=== PATIENT | male | born 2000 | race Two or more races ===

== ENCOUNTER 2018-01-10 19:04 | Emergency (ER) | payer MEDICAID ==
[~2018-01-10] VITALS: Ht 167.6 cm; Wt 59.0 kg
--- NOTE | 2018-01-10 19:10 | Emergency Room Report ---
History of Present Illness General Chief Complaint: General Complaint Source: Patient Present Illness HPI 17-year-old male presents with acute dystonic reaction soon after taking 30mg Reglan for a headache. This was the first time he ever took Reglan, and the bottle states one tab 3 times a day and so he mistakenly took 3 tabs at once. He was prescribed it for her headaches he had after being diagnosed with a concussion. His face and arms became spastic contorted and he cannot relax him. EMS was called and gave him 25 IV Benadryl without any relief. Patient is able to speak but reports he cannot stop the contortion of his face or arms. Allergies: Coded Allergies: No Known Allergies (Unverified , 01/10/18) Patient History Past Medical History: see triage record Reviewed Nursing Documentation: PMH: Agreed, PSxH: Agreed Nursing Documentation-PMH Hx Asthma: Yes Review of Systems All Other Systems: negative except mentioned in HPI Physical Exam Vital Signs Date Time Temp Pulse Resp B/P (MAP) Pulse Ox O2 Delivery O2 Flow Rate FiO2 01/10/18 19:01 98.0 105 18 130/90 99 Room Air 98.1 Sp02 EP Interpretation: reviewed, normal General Appearance: no apparent distress, alert, non-toxic Head: normocephalic Eyes: bilateral eye normal inspection, bilateral eye PERRL, bilateral eye EOMI ENT: normal ENT inspection, hearing grossly normal, normal pharynx, no angioedema, normal voice, moist mucus membranes Neck: normal inspection, full range of motion, supple, supple/symm/no masses Respiratory: chest non-tender, lungs clear, normal breath sounds, chest symmetrical, palpation of chest normal Cardiovascular #1: normal peripheral pulses, regular rate, rhythm Cardiovascular #2: 2+ radial (R), 2+ radial (L) Gastrointestinal: normal inspection, non tender, soft, no mass, no guarding, no rebound Rectal: deferred Genitourinary: normal inspection, no CVA tenderness Musculoskeletal: back normal, gait/station normal, normal range of motion, non- tender, no calf tenderness Neurologic: alert, responsive, roll on worker III-XII nml as tested, motor strength/tone normal - Hypertonicity in bilateral upper extremities with contortion of his facial muscles to the right and neck to the right as well as both hands contorted and stiff, sensory intact, speech normal Psychiatric: judgement/insight normal, memory normal, mood/affect normal, no suicidal/homicidal ideation Skin: normal color, no rash, warm/dry, normal turgor Lymphatic: no adenopathy Medical Decision Making Reaction to Intervention: Improved Diagnostic Impression: Primary Impression: Acute dystonic reaction due to drugs Rhythm Strip Diag. Results Rhythm Strip Time: 21:22 EP Interpretation: yes Rate: 88 Rhythm: NSR, no PVC's, no ectopy Last Vital Signs Date Time Temp Pulse Resp B/P (MAP) Pulse Ox O2 Delivery O2 Flow Rate FiO2 01/10/18 19:01 98.0 105 18 130/90 99 Room Air 98.1 Status: improved Reevaluation Impression Patient's reaction improved greatly but he was starting to develop akathisia even though his dystonias improved. He was given 50 mg of Benadryl prior to arrival so I cannot give him any more, he actually had good effect with Ativan as well. The initial 2 mg IV benztropine worked very well for his dystonia, but then he was still with a akathisia's. Discharge him with instructions to avoid Reglan in the future, and if he decides to take in the future ever once his current reaction is resolved that he take it with Benadryl and only take 10 mg at a time. I will discharge him with benztropine 2 mg twice a day for 10 days. Disposition: HOME, SELF-CARE Condition: Stable Scripts Benztropine Mesylate* (BENZTROPINE MESYLATE*) 2 Mg Tablet 2 MG ORAL TWICE A DAY for 10 Days, TAB Prov: YOAN JACKMAN M.D 01/10/18 YOAN JACKMAN M.D Jan 10, 2018 19:10
[2018-01-10] MEDS ORDERED: LORazepam 1mg tab ORAL ONE (20:15)
[2018-01-10 20:57] VITALS: BP 120/79
[2018-01-10] MEDS ORDERED: BENZTROPINE MESY2 MG ORAL (21:20)
[2018-01-10 21:41] VITALS: BP 120/79
== END 2018-01-10 21:42 | disposition home or self-care (01) ==
LOC: EDBD 19:04 → EMR 19:30
DX: G24.09 Other drug induced dystonia (principal); J45.909 Unspecified asthma, uncomplicated
CPT/HCPCS: 96374; 99284; J0515